=== PATIENT | female | born 1990 | race Caucasian/White ===

== ENCOUNTER 2022-07-16 06:00 | Inpatient (IN) | payer BC ==
[2022-07-16] MEDS ORDERED: TERBUTALINE 1 MG/ML VIAL SQ PRN (06:25)
[2022-07-16] MEDS ORDERED: METHYLERGONOVINE 0.2 MG/ML 1 ML AMP IM PRN (06:25)
[2022-07-16] MEDS ORDERED: LIDOCAINE 0.5% (PF) 5 MG/ML (50 ML SDV) SQ PRN (06:25)
[2022-07-16] MEDS ORDERED: CARBOPROST TROMETHAMINE 250 MCG/ML 1 ML AMP IM PRN (06:25)
[2022-07-16] MEDS ORDERED: OXYTOCIN 10 UNIT/ML 1 ML VIAL IM PRN (06:25)
[2022-07-16] MEDS ORDERED: OXYTOCIN 30 UNITS/500 ML NS 30 UNIT in SALINE 1 500ML.BAG IV SCH ×2 (06:30→23:45)
[2022-07-16] MEDS ORDERED: AMPICILLIN 2,000 MG in SODIUM CHLORIDE 0.9% 100 ML IVPB STA (06:30)
[2022-07-16] MEDS: LACTATED RINGERS 1,000 ML IV SCH ×3 (06:40→17:10)
[2022-07-16 06:49] LABS: Basophils % (A) 0 %; Eosinophils # (A) 0.5 k/uL (0-0.7); Eosinophils % (A) 5 %; HCT 34.4 % (34.0-46.0); HGB 11.5 gm/dL (11.4-16.0); Lymphocytes # (A) 1.6 k/uL (1.0-4.8); Lymphocytes % (A) 17 %; MCH 27.9 pg (25.0-35.0); MCHC 33.5 g/dL (31.0-37.0); MCV 83.3 fL (80.0-100.0); Mean Platelet Volume 7.3; Monocytes # (A) 0.6 k/uL (0-1.0); Monocytes % (A) 6 %; Neutrophils # (A) 6.6 k/uL (1.3-7.7); Neutrophils % (A) 70 %; Platelet Count 305 k/uL (150-450); RBC 4.13 m/uL (3.80-5.40); RDW 13.4 % (11.5-15.5); WBC 9.5 k/uL (3.8-10.6)
[2022-07-16] MEDS ORDERED: BUTORPHANOL 1 MG/ML 1 ML VIAL IV PRN (09:17)
[2022-07-16] MEDS: AMPICILLIN 1,000 MG in SODIUM CHLORIDE 0.9% 50 ML IVPB SCH ×4 (11:15→23:42)
[2022-07-16] MEDS ORDERED: ROPIVACAINE 100 MG, fentaNYL (PF). 200 MCG in SODIUM CHLORIDE 0.9% 76 ML EPIDURAL ONE (15:30)
[2022-07-16] MEDS ORDERED: diphenhydrAMINE 50 MG/ML 1 ML VIAL IVP PRN ×2 (23:56)
[2022-07-16] MEDS ORDERED: SIMETHICONE 80 MG CHEWABLE PO PRN (23:56)
[2022-07-16] MEDS ORDERED: ZOLPIDEM 5 MG TAB PO PRN (23:56)
[2022-07-16] MEDS ORDERED: ACETAMINOPHEN TAB 325 MG TAB PO PRN (23:56)
[2022-07-16] MEDS ORDERED: diphenhydrAMINE 25 MG CAP PO PRN (23:56)
[2022-07-16] MEDS ORDERED: BENZOCAINE/MENTHOL SPRAY 1 GM/SPRAY AEROSOL TOPICAL PRN (23:56)
[2022-07-16] MEDS ORDERED: LANOLIN CREAM 5 GM TUBE TOPICAL PRN (23:56)
[2022-07-16] MEDS ORDERED: HYDROCORTISONE 2.5% RECTAL CREAM 30 GM TUBE RECTAL PRN (23:56)
[2022-07-16] MEDS ORDERED: diphenhydrAMINE 50 MG CAP PO PRN (23:56)
--- NOTE | 2022-07-17 00:01 | P.PROBDLV ---
Vaginal Delivery Note - . Vaginal Delivery Note: 31-year-old 1 para 0 at 40-3/7 weeks that presented to labor and delivery this morning for induction of labor secondary to postdates. Patient was admitted to labor and delivery and Pitocin induction of labor was begun. Amniotomy was performed and clear fluid was obtained. Patient progressed through labor eventually becoming uncomfortable requesting epidural placement. Epidural was placed without difficulty by the anesthesia department. Patient made slow progress toward complete. Once complete placed was placed in a modified lithotomy position. Patient began pushing. With excellent maternal effort patient brought the baby down to a presentation. With additional pushes the anterior/posterior shoulder were delivered followed by the body. A loose nuchal cord was delivered through. After two-minute delayed the umbo cord was doubly clamped and cut and the placenta was delivered spontaneously intact with a three-vessel cord being noted. A spontaneous cry was noted at . On inspection the patient's vaginal vault a second-degree midline vaginal laceration was appreciated addition to a left labial laceration these lacerations were instilled lidocaine repaired in the usual fashion. The second-degree with 3-0 Rapide, the left labial with 4-0 chromic. Hemostasis was appreciated afterwards. Patient had passage of a moderate amount of clots after repair. Uterus was then noted to be firm and below the umbilicus. The bladder was then drained for approximately 100 mL of clear yellow urine. Labial and vaginal lacerations were inspected once again hemostasis was appreciated. Patient and tolerated delivery well and are resting comfortable he. All counts were noted be correct 2 at the end of the delivery.
--- NOTE | 2022-07-17 00:02 | P.HPOB ---
History of Present Illness H&P Date: 07/16/22 Chief Complaint: IUP @ 40 This is a 31-year-old 1 para 0 at 40 3/7 weeks of gestation and presents for induction of labor. Patient has been receiving routine care which has been essentially uncomplicated. Patient notes good movement denies vaginal bleeding or loss of fluid. On bloodwork this patient is a blood type of O+, rubella status immune, hepatitis B surface antigen negative, HIV negative, RPR nonreactive, group beta strep culture was positive. Review of Systems Constitutional: Denies chills, Denies fatigue, Denies fever Ears, nose, mouth and throat: Denies headache Cardiovascular: Reports leg edema Respiratory: Denies dyspnea Gastrointestinal: Denies nausea, Denies vomiting Genitourinary: Reports Past Medical History Past Medical History: No Reported History History of Any Multi-Drug Resistant Organisms: None Reported Past Surgical History: Tonsillectomy Past Anesthesia/Blood Transfusion Reactions: No Reported Reaction Past Psychological History: No Psychological Hx Reported Smoking Status: Never smoker Past Drug Use History: None Reported Medications and Allergies Home Medications Medication Instructions Recorded Confirmed Type Famotidine [Pepcid] 20 mg PO DAILY 07/16/22 07/16/22 History Vit No.179/Iron/Folic 1 tab PO DAILY 07/16/22 07/16/22 History [ Tablet] Allergies Allergy/AdvReac Type Severity Reaction Status Date / Time No Known Allergies Allergy Verified 07/16/22 06:24 Exam Osteopathic Statement: *. No significant issues noted on an osteopathic structural exam other than those noted in the History and Physical/Consult. 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 heart tones are noted to be category 1 and she is aniceto irregularly. Results Result Diagrams: 07/16/22 06:41 Assessment and Plan (1) Term Current Visit: Yes Status: Acute Code(s): Z34.90 - ENCNTR FOR SUPRVSN OF NORMAL , UNSP, UNSP TRIMESTER SNOMED Code(s): 98116610 (2) Positive GBS test Current Visit: Yes Status: Acute Code(s): B95.1 - STREPTOCOCCUS, GROUP B, CAUSING DISEASES CLASSD ELSWHR SNOMED Code(s): 614611613 Plan: 31-year-old 1 para 0 at 40 3/7 weeks of gestation presents for induction of labor. Pitocin induction of labor is begun per hospital protocol. Amniotomy is performed and clear fluid was obtained. Antibiotics are given for GBS prophylaxis given positive rectovaginal culture. Patient is counseled on options for analgesia during labor. Stadol and epidural are offered. Questions are answered.
[2022-07-17] MEDS: IBUPROFEN 600 MG TAB PO SCH ×5 (02:17→20:45)
[2022-07-17] MEDS ORDERED: PRENATAL VIT-IRON-FOLIC ACID 1 EACH TABLET PO SCH (09:00)
[2022-07-17] MEDS: SENNOSIDES-DOCUSATE SODIUM 1 EACH TAB PO SCH ×2 (12:03→20:45)
--- NOTE | 2022-07-17 12:20 | P.PNOBGVD ---
Subjective - Subjective Principal diagnosis: day #1 status post normal spontaneous vaginal delivery Interval history: patient is doing well . She is ambulating and voiding without difficulty. She is struggling with breast-feeding and is seeing the senior business consultant, lochia is moderate. Pain is well-controlled. Patient reports: Reports appetite normal, Reports voiding normally, Reports pain well controlled, Reports ambulating normally [place]: doing well Objective - Latest Vital Signs Latest vital signs: Vital Signs Temp Pulse Resp BP Pulse Ox 07/17/22 08:00 97.9 F 68 15 102/67 96 07/17/22 04:15 98.0 F 94 16 94/60 95 07/17/22 01:57 109 H 16 119/76 07/17/22 01:27 105 H 16 118/73 07/17/22 00:57 103 H 16 119/70 07/17/22 00:42 97.8 F 89 16 111/66 07/17/22 00:27 111 H 16 106/63 07/17/22 00:12 114 H 16 109/68 07/16/22 23:57 110 H 16 120/73 Intake and Output 07/16/22 07/17/22 07/17/22 22:59 06:59 14:59 Intake Total 500.000 Output Total 320 Balance 180.000 Intake: Intake, IV Titration 500.000 Amount Oxytocin 30 Units/500 ml 500.000 Ns 30 unit In Saline 1 500ml.bag @ Per Protocol IV .Q0M [facility] Rx#:[id number] Output: Estimated Blood Loss 100 Output, Quantitative 220 Blood Loss Other: # Voids 1 - Exam Extremities: Present: normal, edema Abdomen: Present: normal appearance, soft Uterus: Present: normal, firm Assessment and Plan (1) Term Current Visit: Yes Status: Acute Code(s): Z34.90 - ENCNTR FOR SUPRVSN OF NORMAL , UNSP, UNSP TRIMESTER SNOMED Code(s): 71318724 (2) Positive GBS test Current Visit: Yes Status: Acute Code(s): B95.1 - STREPTOCOCCUS, GROUP B, CAUSING DISEASES CLASSD ELSR SNOMED Code(s): 648465131 (3) Status post vaginal delivery Current Visit: Yes Status: Acute Code(s): [id number] - SNOMED Code(s): 089240541 (4) Obstetric vaginal laceration with second degree perineal laceration Current Visit: Yes Status: Acute Code(s): O70.1 - SECOND DEGREE PERINEAL LACERATION DURING DELIVERY SNOMED Code(s): 517407092 (5) Obstetric labial laceration, delivered, current hospitalization Current Visit: Yes Status: Acute Code(s): O70.0 - FIRST DEGREE PERINEAL LACERATION DURING DELIVERY SNOMED Code(s): 572609534 Plan: 31-year-old G1 now P1 status post normal spontaneous vaginal delivery. Patient is doing well . Continue routine care and anticipate discharge home tomorrow.
[2022-07-18] MEDS: IBUPROFEN 600 MG TAB PO SCH (06:02)
[2022-07-18] MEDS: SENNOSIDES-DOCUSATE SODIUM 1 EACH TAB PO SCH (08:45)
[2022-07-18 09:21] VITALS: RESP 16
--- NOTE | 2022-07-18 14:59 | P.DS ---
Providers Date of admission: 07/16/22 06:01 Expected date of discharge: 07/18/22 Attending physician: Brunilda Downing Primary care physician: Stated None - Discharge Diagnosis(es) (1) Term Current Visit: Yes Status: Acute (2) Positive GBS test Current Visit: Yes Status: Acute (3) Status post vaginal delivery Current Visit: Yes Status: Acute (4) Obstetric vaginal laceration with second degree perineal laceration Current Visit: Yes Status: Acute (5) Obstetric labial laceration, delivered, current hospitalization Current Visit: Yes Status: Acute Hospital Course: 31-year-old 1 now para 1 that presented to labor and delivery at 40-3/7 weeks for induction of labor secondary to postdates. Patient was admitted to labor and delivery and Pitocin induction of labor was begun. Amniotomy is performed and clear fluid was obtained. Patient progressed slowly through labor eventually becoming uncomfortable and requesting epidural placement. Patient had epidural placed without difficulty by the anesthesia department. Patient progressed slowly to complete began pushing and with excellent maternal effort had a normal spent taste vaginal delivery of a viable male infant at 2329 on 07/16. Weight of 7 lbs. 9 oz., Apgars of 9 and 9 at one and 5 minutes respective ly. Patient did sustain a second-degree vaginal laceration in addition to a left labial laceration these were repaired in usual fashion. Patient's course has been uneventful. On this day #2 she is ambulating and voiding without difficulty, she is tolerating a regular diet without nausea or vomiting, she states her pain is well-controlled. She denies concerns and does wish discharge home. Patient Condition at Discharge: Good Plan - Discharge Summary Discharge Rx Participant: Yes New Discharge Prescriptions: No Action Famotidine [Pepcid] 20 mg PO DAILY Vit No.179/Iron/Folic [ Tablet] 1 tab PO DAILY Discharge Medication List Famotidine [Pepcid] 20 mg PO DAILY 07/16/22 [History] Vit No.179/Iron/Folic [ Tablet] 1 tab PO DAILY 07/16/22 [History] Follow up Appointment(s)/Referral(s): Brunilda Downing DO [Doctor of Osteopathic Medicine] - 4 Weeks Patient Instructions/Handouts: Vaginal Delivery (DC), Vaginal Delivery (GEN) Discharge Disposition: HOME SELF-CARE
[2022-07-18 16:15] VITALS: BP 116/71; PULSE 71; TEMP 98.3
== END 2022-07-18 16:00 | disposition home or self-care (01) | DRG 807 ==
LOC: 4FBP 06:01
PROVIDERS: ADMIT Obstetrics & Gynecology Obstetrics; ATTEND Obstetrics & Gynecology Obstetrics
PROC: 10E0XZZ Delivery of Products of Conception, External Approach (ICD-10-PCS; principal; 2022-07-16)
PROC: 0KQM0ZZ Repair Perineum Muscle, Open Approach (ICD-10-PCS; 2022-07-16)
PROC: 3E033VJ Introduction of Other Hormone into Peripheral Vein, Percutaneous Approach (ICD-10-PCS; 2022-07-16)
PROC: 10907ZC Drainage of Amniotic Fluid, Therapeutic from Products of Conception, Via Natural or Artificial Opening (ICD-10-PCS; 2022-07-16)
DX: O69.81X0 Labor and delivery complicated by cord around neck, without compression, not applicable or unspecified (principal); O70.1 Second degree perineal laceration during delivery; Z37.0 Single live birth; O99.824 Streptococcus B carrier state complicating childbirth; O48.0 Post-term pregnancy; Z3A.40 40 weeks gestation of pregnancy
CPT/HCPCS: 85025; 86850; 86900; 86901

== ENCOUNTER → 2024-02-01 | Outpatient (CLI) | payer BC ==
[2024-02-01 14:22] LABS: Basophils # (A) 0.01 X 10*3/uL (0.00-0.10); Basophils % (A) 0.2 %; Eosinophils % (A) 2.2 %; HCT 42.5 % (37.2-46.3); HGB 13.7 g/dL (12.0-15.0); Lymphocytes # (A) 1.82 X 10*3/uL (0.90-5.00); Lymphocytes % (A) 40.4 %; MCH 27.8 pg (27.0-32.0); MCHC 32.2 g/dL (32.0-37.0); MCV 86.4 FL (80.0-97.0); Mean Platelet Volume 10.2 FL (9.5-12.2); Monocytes # (A) 0.39 X 10*3/uL (0.20-1.00); Monocytes % (A) 8.6 %; NRBC Per 100 WBC 0 X 10*3/uL (0.00-0.01); Neutrophils # (A) 2.18 X 10*3/uL (1.80-7.70); Neutrophils % (A) 48.4 %; Platelet Count 328 X 10*3/uL (140-440); RBC 4.92 X 10*6/uL (4.10-5.20); RDW 12.8 % (11.5-14.5); WBC 4.51 X 10*3/uL (4.50-10.00)
[2024-02-01 14:52] LABS: ALT 16 U/L (8-44); AST 15 U/L (13-35); Albumin 4.1 g/dL (3.8-4.9); Albumin/Globulin Ratio 1.28 Ratio (1.60-3.17); Alkaline Phosphatase 100 U/L (41-126); BUN/Creat Ratio 11.12 Ratio (12.00-20.00); Blood Urea Nitrogen 8.9 mg/dL (9.0-27.0); Calcium 9.1 mg/dL (8.7-10.3); Chloride 105 mmol/L (96-109); Chol/HDL Ratio 2.91 Ratio; Globulin 3.2 g/dL (1.6-3.3); Glucose 87 mg/dL (70-110); LDL Cholesterol,Calculated 117.1 mg/dL (0.0-131.0); Potassium 4.3 mmol/L (3.5-5.5); Sodium 139 mmol/L (135-145); Total Bilirubin 0.3 mg/dL (0.3-1.2); Total Protein 7.3 g/dL (6.2-8.2); VLDL Calculation 17.36 mg/dL (5.00-40.00)
== END | disposition home or self-care (01) ==
LOC: LABWHC1 09:18
PROVIDERS: ATTEND Family Medicine
DX: Z00.00 Encounter for general adult medical examination without abnormal findings (principal); Z13.220 Encounter for screening for lipoid disorders; Z13.29 Encounter for screening for other suspected endocrine disorder; E04.9 Nontoxic goiter, unspecified; Z71.82 Exercise counseling; Z71.3 Dietary counseling and surveillance
CPT/HCPCS: 36415; 80053; 80061; 84443; 85025